=== PATIENT | female | born 1960 | race Caucasian/White ===

== ENCOUNTER 2020-09-18 10:39 | Observation (INO) | payer OTHER ==
[~2020-09-18] VITALS: Ht 165.1 cm; Wt 106.6 kg
[~2020-09-18 10:39] MED LIST: ASPIRIN CHEWABL81 MG PO; BUTALB-ACETAMI1 EAC1 PO; CYCLOBENZAPRINE10 MG PO; DICLOFENAC SOD100 GM TP; FUROSEMIDE40 MG PO; LEVOTHYROXINE100 MCG PO; LOPRESSOR 25 MG25 MG PO; NAPROSYN500 MG PO; NORCO 7.5-3251 EACH PO; PRINIVIL10 MG PO; VISTARIL25 MG PO; VITAMIN D31000 UNI1 PO; ZOCOR40 MG PO
[2020-09-19 06:30] LABS: HEMOGLOBIN 13.7 gm/dl (12.3-15.3); RED BLOOD COUNT 4.46 M/UL (4.00-5.10); WHITE BLOOD COUNT 6.7 K/UL (4.5-11.0)
[2020-09-19] MEDS ORDERED: NITROSTAT0.4 MG SL (11:46)
[2020-09-19] MEDS ORDERED: BUTALB-ACETAMI1 EAC1 PO (11:58)
== END 2020-09-19 13:03 | disposition home or self-care (01) ==
LOC: MED SURG 4 12:10
PROVIDERS: Physician Assistant Medical; ADMIT Internal Medicine
DX: I20.9 Angina pectoris, unspecified (principal); I13.0 Hypertensive heart and chronic kidney disease with heart failure and stage 1 through stage 4 chronic kidney disease, or unspecified chronic kidney disease; N18.30 Chronic kidney disease, stage 3 unspecified; I50.30 Unspecified diastolic (congestive) heart failure; D63.1 Anemia in chronic kidney disease; E78.5 Hyperlipidemia, unspecified; E03.9 Hypothyroidism, unspecified; E66.9 Obesity, unspecified; Z86.79 Personal history of other diseases of the circulatory system; Z82.49 Family history of ischemic heart disease and other diseases of the circulatory system; Z68.39 Body mass index [BMI] 39.0-39.9, adult; Z79.82 Long term (current) use of aspirin; Z79.899 Other long term (current) drug therapy; Z20.822 Contact with and (suspected) exposure to COVID-19
CPT/HCPCS: ECHO; 36415; 80048; 80061; 82550; 82553; 83735; 84484; 85027; 93005; 93306; G0378; G0379; U0002

== ENCOUNTER → 2022-01-26 | Outpatient (CLI) | payer OTHER ==
[~2022-01-26] MED LIST changes: +NITROSTAT0.4 MG SL
== END ==
LOC: EXRD 10:10
DX: Z13.820 Encounter for screening for osteoporosis (principal); M85.852 Other specified disorders of bone density and structure, left thigh
CPT/HCPCS: 77080

== ENCOUNTER → 2022-01-26 | Outpatient (CLI) | payer OTHER | LOC: MAMO 09:14 | DX: Z12.31 Encounter for screening mammogram for malignant neoplasm of breast (principal); N63.15 Unspecified lump in the right breast, overlapping quadrants | CPT/HCPCS: 77063; 77067 ==

== ENCOUNTER → 2022-02-19 | Outpatient (CLI) | payer OTHER | LOC: MAMO 10:14 | DX: R92.8 Other abnormal and inconclusive findings on diagnostic imaging of breast (principal); N63.10 Unspecified lump in the right breast, unspecified quadrant | CPT/HCPCS: 76642-RT; 77065; G0279 ==